=== PATIENT | male | born 1930 | race Caucasian/White ===

== ENCOUNTER 2018-01-02 10:27 | Inpatient (IN) | payer MEDICARE, BC ==
[~2018-01-02] VITALS: Ht 182.9 cm; Wt 99.3 kg
[2018-01-02 11:36] LABS: HEMATOCRIT 31.3 % (42.0-52.0); HEMOGLOBIN 10.1 gm/dL (14.0-18.0); MCH 33.2 pg (26.0-34.0); MCHC 32.4 g/dL (28.0-37.0); MCV 102.5 fL (80.0-100.0); RBC 3.05 mil/uL (4.50-6.00); RDW-CV 17.3 % (10.5-14.5); WBC 38.5 thou/uL (4.0-11.0)
[2018-01-02 11:46] LABS: ALBUMIN 3.1 g/dL (3.4-5.0); CALCIUM 8.6 mg/dL (8.5-10.1); CREATININE 6.9 mg/dL (0.6-1.3); POTASSIUM 3.9 mmol/L (3.5-5.1); TOTAL BILIRUBIN 0.6 mg/dL (<0.1-1.0); TOTAL PROTEIN 6.3 g/dL (6.4-8.2)
[2018-01-02] MEDS ORDERED: FOLIC ACID1 MG PO (14:00)
[2018-01-02] MEDS ORDERED: CELEXA10 MG PO (14:02)
[2018-01-02] MEDS ORDERED: ERGOCALCIF50000 UNIT PO (14:05)
[2018-01-02] MEDS ORDERED: TRAVATAN Z2.5 ML OPHTHALMIC (14:07)
[2018-01-02] MEDS ORDERED: PROSCAR 5MG TABL5 MG PO (14:08)
[2018-01-02] MEDS ORDERED: PRESERVISION A1 EAC2 PO (14:12)
[2018-01-02] MEDS ORDERED: PROTONIX40 M1 PO (14:13)
[2018-01-02] MEDS ORDERED: MIRALAX17 GM PO (14:16)
[2018-01-02] MEDS ORDERED: ALLOPURINOL 10100 M1 PO (14:18)
[2018-01-02] MEDS ORDERED: LANTUS100 UNIT/M SUBQ (14:19)
[2018-01-02] MEDS ORDERED: HUMALOG KW100 UNIT/1 SUBQ (14:21)
[2018-01-02] MEDS ORDERED: IMBRUVICA140 MG PO (14:32)
[2018-01-02] MEDS ORDERED: RENVELA800 MG PO ×2 (14:35→14:38)
--- NOTE | 2018-01-02 15:06 | EKG ---
[place] [address] ELECTROCARDIOGRAM REPORT Name: [facility] Room: [place] [address] ADM IN M.R.#: [id number] Admission: 01/02/18 Attend Phys: Georgiana Medeiros Discharge: Date of : [birth year] Report #: [id number] THIS REPORT FOR: //name// [facility] Test Date: 2018-01-02 Test Time: 13:01:52 Pat Name: MULU [facility] Department: Room: [place] [address] Gender: M Bench Lathe Operator: : 1930 Requested By: Holly Temple Order Number: [id number] Danial MD: Adrian Coles Measurements Intervals [place] Rate: 64 P: 13 IA: 161 QRS: -12 QRSD: 100 T: 14 QT: 632 QTc: 653 Interpretive Statements Sinus rhythm Borderline T abnormalities, anterior leads Prolonged QT interval No previous ECG available for comparison Electronically Signed On 01-02-2018 15:06:10 CDT by Adrian Coles [email or web address] <ELECTRONICALLY SIGNED> By: Adrian Coles MD, [facility] 01/02/18 1506 1301 130 Adrian Coles MD, FAC /EPI
--- NOTE | 2018-01-02 18:12 | NUR ---
VSS, ASSUMED CARE OF PT FROM WOUND CLINIC, PT IS UP[ WITH STAND BY AND CANE, PT IS ON RA AND DENIES ANY PAIN,PT DENIES ANY PAIN AND IS TRACING SR ON THE MONITOR, PT IS A&O4 AND HAS A WOUND ON LIZBET FROM OPEN AV GRAFT, PT IS IN SURGEY FROM GRAFT REPAIR, WILL FOLLOW WITH PLAN OF CARE.
[2018-01-02 19:50] VITALS: BP 90/39
[2018-01-03] VITALS: BP 109/59
[2018-01-03 04:00] VITALS: BP 101/59
--- NOTE | 2018-01-03 04:20 | NUR ---
END SHIFT: PT RESTED WELL. PAIN IN LEFT UPPER EXT WHERE GRAFT WAS PERFORMED, RELIEVED BY PAIN PILL. NSR NOTED ON MONITOR. 1L NC. LEFT UPPER ARM WRAPPED WITH LAURA HETAL, CDI. PLANS FOR DIALYSIS THIS AM. SAFETY PRECAUTIONS IN PLACE. CALL LIGHT IN REACH. WILL CONT TO MONITOR.
[2018-01-03 04:50] LABS: HEMATOCRIT 28.4 % (42.0-52.0); HEMOGLOBIN 9.1 gm/dL (14.0-18.0); MCV 103.3 fL (80.0-100.0); MPV 8.2 fl. (7.2-11.1); NUCLEATED RBCS 0 /100WBC; RBC 2.74 mil/uL (4.50-6.00); RDW-CV 17.6 % (10.5-14.5)
[2018-01-03 04:55] LABS: PLATELET COUNT* 45 thou/uL (150-400); WBC 41.4 thou/uL (4.0-11.0)
[2018-01-03 05:18] LABS: CALCIUM 8.4 mg/dL (8.5-10.1); POTASSIUM 3.8 mmol/L (3.5-5.1)
[2018-01-03 05:19] LABS: CREATININE 8.2 mg/dL (0.6-1.3)
[2018-01-03 07:45] LABS: ABSOLUTE LYMPHOCYTES 38.1 thou/uL (0.8-5.3); ABSOLUTE MONOCYTES 1.2 thou/uL (0.0-1.2); ABSOLUTE NEUTROPHILS 2.1 thou/uL (1.6-8.1); ATYPICAL LYMPHS 49 %; ATYPICAL MONONUCLEARS 3 %; PLATELET ESTIMATE DECREASED
[2018-01-03 07:47] LABS: HYPOCHROMASIA 1+; POIKILOCYTOSIS Occasional; POLYCHROMASIA Occasional
[2018-01-03 08:40] VITALS: BP 90/43
--- NOTE | 2018-01-03 10:00 | NUR ---
MET WITH PT, /PAMELA AND FAMILY IN ROOM TO DISCUSS HOME SITUATION/DC PLANNING. PT LIVES WITH . HE IS INDEPENDENT WITH ADLS, USES CANE OR WALKER AND WEARS O2 AT NIGHT THRU [place]. HE HSAN'T HAD HH AND STATES HE 'DOESN'T NEED IT.' PT GOES TO [facility] AND PLANS TO RETURN HOME AT [place] HOPES TO GO HOME TODAY. PT DENIES ANY DC NEEDS. WILL FOLLOW
--- NOTE | 2018-01-03 10:30 | NUR ---
ASSUMED CARE OF PT THIS AM AROUND 714- MED SURG STATUS IN PLACE AND MAINTAINED- UPON ASSESSMENT PT NOTED TO BE RESTING IN BED, AT SIDE- PT A&O X4, LITTLE TRAVERSE- CONTINENT OF BOWEL AND BLADDER, WITH NOTED ANURIA R/T DIALYSIS- ASSIST X1 WITH TRANSFERS WITH CANE- LCTA, RESP EVEN AND UN-LABORED- VSS, O2 SAT 97% ON 3.5L VIA NC THIS AM- RIGHT CHEST PORT ACCESSED, SL C/D/I WITH NO S/S INFECTION-IV ABT GIVEN THIS AM WITH NO ADVERSE REACTIONS TO NOTE- LEFT UE SURGICAL REVISION NOTED, DRESSING WITH LAURA WRAP IN PLACE INDICATED- LEFT TEMP DIALYSIS PORT NOTED TO LEFT NECK IN PLACE, DRESSING C/D/I WITH NO S/S INFECTION NOTED- GOOD PO INTAKE NOTED THIS AM WITH BREAKFAST- BS MONITORED PRESCIBED- PRN OXY GIVEN PER PT REQUEST R/T PAIN, PT REPORTS MEDICATION TO BE EFFECTIVE- CALL LIGHT AND PERSONLA BELONGINGS WITH IN REACH- HOURLY ROUNDS IN PLACE R/T SAFETY/NEEDS- ALL NEEDS MET AT THIS TIME-[facility]
[2018-01-03 15:55] VITALS: BP 90/43
[2018-01-03] MEDS ORDERED: PERCOCET PO (17:36)
[2018-01-03] MEDS ORDERED: VANCO1GM IV (17:39)
--- NOTE | 2018-01-03 18:23 | OP ---
[facility] [address] [place] [address] OPERATIVE REPORT Name: [facility] Room: [address] M.R.#: [id number] Admission: 01/02/18 Attend Phys: Georgiana Medeiros Discharge: Date of : [birth year] Report #: [id number] THIS REPORT FOR: //name// CC: Kulwant Gallo DATE OF SERVICE: 01/02/2018 PREOPERATIVE DIAGNOSIS: Exposed left upper extremity arteriovenous graft. POSTOPERATIVE DIAGNOSIS: Exposed left upper extremity arteriovenous graft. SURGEON: Kulwant Osorio DO. WASTE MANAGEMENT ENGINEER: Holly Temple PA-C and CANDY Mon. ANESTHESIA: General endotracheal anesthesia. PROCEDURE: 1. Revision of left upper extremity AV graft. 2. Excision of previous and exposed and infected AV graft. 3. Ultrasound-guided access, left internal jugular vein. 4. Tunneled dialysis catheter placement, left internal jugular vein with Bard RetrO catheter. 5. Fistulogram, left upper extremity with angioplasty of cephalic vein with Bard 6 x 40 mm angioplasty balloon. ESTIMATED BLOOD LOSS: 100 mL. SPECIMEN: Cultures x 3. I took a graft culture proximally near the elbow, distally near the shoulder and also separately a culture of the exposed graft. COMPLICATIONS: None. CONDITION: Stable. DISPOSITION: Floor. INDICATIONS FOR THE PROCEDURE AND CONSENT: The patient is an 87-year-old male who presented with exposed left upper extremity AV graft to the [facility]. This was a progression and a deterioration from his last visit and there was significant concern for wall thickening of the graft and anticipated bleeding. Recommendation for revision was made. Risks and benefits were discussed, infection, bleeding, need for additional procedures, need for tunneled dialysis catheter placement, and need for new access if graft salvage [address] [address] OPERATIVE REPORT Name: [facility] Room: [address] Vikas Elliott#: [id number] Admission: 01/02/18 Attend Phys: Georgiana Medeiros Discharge: Date of : [birth year] Report #: [id number] is not possible. The patient wished to proceed after risks and benefits were discussed and the patient was consented and scheduled the same day. PROCEDURE IN DETAIL: After timeout was performed, the patient was placed in supine position with circumferential sterile prep and drape of left upper extremity as well as anterior neck and chest wall. The anterior neck and chest were excluded from the procedure and the AV graft was assessed first. The AV graft was accessed proximally with a micropuncture needle and 5-Slovak micropuncture sheath. An outflow fistulogram was performed. The graft felt somewhat pulsatile. This demonstrated a severe stenosis beyond the previously placed AV graft within the cephalic vein. The central venous system appeared widely patent without flow limitation or stenosis, although the cephalic axillary vein junction was small and did not really appear stenosed. This appeared to be his normal anatomy. I therefore advanced a Glidewire beyond the stenosis and angioplasty with a 6 x 40 Bard angioplasty balloon. Repeat angiography demonstrated excellent radiographic result without significant flow or limitation or recoil. This area was marked on the skin and was noted to be high in the axilla and I did not feel it was appropriate to bypass beyond it with my revision. I then made transverse incisions well beyond the area of infection and proximally where I had accessed the graft with the sheath. The dissection was carried down with Bovie electrocautery and Metzenbaum scissors. Proximal and distal controls were obtained at each area. After administering 5000 units of heparin I then clamped the graft proximally and divided it. I then excised a portion of the graft closest to the infection and sent it as culture elbow graft. I then did a similar exposure, clamping, transection and removal of area near the shoulder. I then tunneled between the two incisions and tunneled a new 7 mm Acuseal graft between the two. I then performed an end-to-end anastomosis at both graft sites with 5-0 Prolene suture. I then irrigated and made sure of hemostasis and closed both in layers using 3-0 Vicryl and 4-0 Monocryl suture and Dermabond dressing was applied. I then removed the Tegaderm that I had placed on the area of the wound and addressed the infected area. I then made an incision overlying the graft and dissected out the graft and excised the central portion and sent it as a culture. I then removed as much graft back to well incorporated tissue as possible and discarded it. We then irrigated the wound and packed it with Aquacel Ag. The arm was then covered and attention was turned to the tunneled dialysis catheter. I then performed an ultrasound, identified the jugular vein, which was somewhat difficult. There appeared to be significant varicosities within the neck and the internal jugular vein was difficult to localize. I was able to access it, however, on first stick and passed a wire into the central venous system. The central venous system was congested by a previous right-sided Port-A-Cath and pacemaker. I was able to advance the Glidewire as introducer sheath over the wire and advanced a second wire, advanced the dual lumen catheter over both [address] [address] OPERATIVE REPORT Name: M[facility] Room: 233-1 [facility] NishiAleshia.#: [id number] Admission: 01/02/18 Attend Phys: Georgiana Medeiros Discharge: Date of : [birth year] Report #: [id number] wires after dilation into the SVC and the tunnel on the chest wall aspirated and flushed well and ports were applied and heparinized saline advanced through the catheters too. The access site was then closed with a 4-0 Monocryl suture and Dermabond dressing was applied and sterile dressing was applied. LAURA compression wrap was applied to left upper extremity to assist with swelling. The patient tolerated both the procedures well. Lap, needle, and instrument counts were correct. <ELECTRONICALLY SIGNED> By: Kulwant Osorio DO 01/03/18 1823 1859 1918Kulwant Osorio DO /nt
--- NOTE | 2018-01-03 19:01 | NUR ---
PT CURRENLTY RESTING IN BED, SPOUSE AT SIDE VISTING- IV ACCESS TO RIGHT CHEST IN PLACE AND CONTINUED INDICATED- DIALYSIS COMPLETED THIS SHIFT SCHEDULED, UNABLE TO PULL FLUIDS OFF R/T HYPOTENTION DURING DIALYSIS- ORDERS RECIEVED PER FOR ALBUMIN X1 AND MIDODRINE 10MG X1 AND GIVEN PER DIALYSIS NURSE WITH NO SUCESS- BLOOD CLEANED DURRING DIALYSIS- ID HERE TO ASSESS PT DURING DIALYSIS WITH ORDERS NOTED FOR VANC DURING DIALYIS- UPON RETURNING TO ROOM AND GETTING READY TO GO OVER D/S ORDERS AND DEMMONSTRATE DRESSING CHANGE TO SPOUSE- SPOUSE NOTED TO BCOME ANXIOUS AND LOUD, APPREHENSIVE ABOUT TAKING PT HOME AND CARING FOR HIM, FELLING THAT SHE WAS NOT GETTING ALL INFORMATION NEEDED- NOTIFIED AND HAS SPOKE WITH SPOUSE- PLANS ARE FOR PT TO STAY ANOTHER NIGHT WITH CM TO SET UP HH FOR D/C, AND FOR FURTHER EDUCATION PRIOR TO D/C- PT AND SPOUSE CURRENLTY RESTING IN ROOM-OKAY AND CALM WITH PLANS AT THIS TIME-ALL NEEDS MET AT THIS TIME-WCTM
[2018-01-03 20:00] VITALS: BP 102/33
[2018-01-04] VITALS: BP 103/46
[2018-01-04 04:00] VITALS: BP 119/66
--- NOTE | 2018-01-04 06:24 | NUR ---
ASSUMED CARE OF PATIENT AT 1900 THE PATIENT REMAINS SR ON THE MONITOR O2 SAT MAINTAINED ON 2L O2 NC DURING NIGHT REMAINED BEDREST THE ROUTINE ET PRN REGIMEN CONTINUES TO BE EFFECTIVE FOR SX MANAGEMENT PAIN RECEIVED PRN OPIOD X 2 EFFECTIVE PATIENT PROGRESSING TOWARDS GOALS OF DISCHARGE SAFETY INTERVENTIONS CONTINUE BED LOWERED WHEELS LOCKED CALL LIGHT IN REACH SIDE RAILS UP REPORT TO BE GIVEN TO IRAM ACOSTA
--- NOTE | 2018-01-04 06:43 | CON ---
[address] [address] CONSULTATION Name: [facility] Room: [address] M.RRina#: [id number] Admission: 01/02/18 Attend Phys: Georgiana Medeiros Discharge: Date of : [birth year] Report #: [id number] THIS REPORT FOR: //name// CC: Kulwant Gallo DATE OF SERVICE: 01/03/2018 INFECTIOUS DISEASE CONSULTATION ATTENDING PHYSICIAN: Donovan Gallo DO REASON FOR EVALUATION: Infected arteriovenous graft utilized for dialysis proximal left upper extremity. HISTORY OF PRESENT ILLNESS: Chart reviewed, patient examined. This is an 87-year-old gentleman with end-stage renal disease. Also, has chronic lymphocytic leukemia who was evaluated as an outpatient in the wound care center, had exposed AV graft associated with left proximal upper extremity. He was subsequently admitted and underwent operative excision, redirection of the graft, cultures in progress. He was given a dose of vancomycin as well as levofloxacin. Denies pulmonary or gastrointestinal related complaints. ALLERGIES: PENICILLIN, SULFA, METFORMIN. CURRENT MEDICATIONS: Include levofloxacin, allopurinol, finasteride, folic acid, insulin, ipratropium, albuterol inhaler. PAST MEDICAL HISTORY: As noted above. In addition to the above, thrombocytopenia. SOCIAL HISTORY: Former smoker. No ethanol. FAMILY HISTORY: Noncontributory. REVIEW OF SYSTEMS: As above. PHYSICAL EXAMINATION: GENERAL: He is alert, cooperative, in mild distress, appears somewhat chronically ill, undernourished. He is seen in dialysis. VITAL SIGNS: Temperature 97.3, pulse 67, respirations 20, blood pressure 90/43. SKIN: Warm. Fine rashes. HEENT: Unremarkable. NECK: Supple. LUNGS: Clear to auscultation. [address] [address] CONSULTATION Name: [facility] Room: [address] Earl#: [id number] Admission: 01/02/18 Attend Phys: Georgiana Medeiros Discharge: Date of : [birth year] Report #: [id number] HEART: Regular. I do not appreciate any murmur. ABDOMEN: Soft. EXTREMITIES: Proximal left upper extremity has a wound at the site of recent graft excision. He has got moderate degree of inflammation noted. There is no purulence at this point. He is moderately tender. GENITOURINARY: Deferred. RECTAL: Deferred. LABORATORY DATA: Blood cultures sterile thus far. Electrolytes: Sodium 141, potassium 3.8, chloride 99, bicarbonate is 34, anion gap of 8, BUN and creatinine 47 and 8.2, estimated GFR of 6. CBC: White count of 41.4, H and H 9.1 and 28.4, platelets of 45. There is 49% atypical lymphocytes with a total lymphocyte count of 38,000. Lactic acid 1.7. Chest x-ray, left basilar scarring. ____. LFTs unremarkable. Albumin of 3.1. Total protein of 6.3. 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 We will continue parenteral therapy with vancomycin, pending results of culture with dialysis thrice weekly. We will see him in followup in 2 weeks. We will again follow the culture results and change as needed. <ELECTRONICALLY SIGNED> By: Bryson Lopez MD 01/04/18 0643 1623 [id number] Lopez MD /nt
[2018-01-04 07:58] VITALS: BP 106/37
--- NOTE | 2018-01-04 10:03 | NUR ---
ASSUMED CARE OF PT THIS AM AROUND 07- M/S STATUS MAINTAINED- UPON ASSESSMENT PT NOTED TO BE RESTING IN BED, DAUGHTER AT BEDSIDE- PT A&O X4- CONTINENT OF BOWEL, ANURIC- ASSIST X1 WITH TRANSFERS- LCTA, RESP EVEN AND UN-LABORED- VSS, O2 SAT 91% ON RA- ABDOMEN SOFT/ROUND/NON-TENDER, BS X4 QUADS- LAST BM REPORTED X3 DAYS AGO- IV ASSESS NOTED TO RIGHT CHEST INTACT AND SL- LEFT SUBCLAV TEMP DIALYSIS PORT INTAC, DRESSING C/D/I- DRESSING IN PLACE TO LUE INDICATED- PT UP TO BED SIDE CHAIR THIS AM WITH BREAKFAST- GOOD PO INTAKE NOTED- BS MONITORED ORDERED, SSI PRESCIBED- PT DENIES ANY C/O PAIN/DISCOMFORT AT THIS TIME- CALL LIGHT AND PERSONAL BELONGINGS WITH IN REACH- HOURLY ROUNDS IN PLACE R/T SAFETY/NEEDS- ALL NEEDS MET AT THIS TIME-WCTM
--- NOTE | 2018-01-04 10:50 | NUR ---
MET WITH PT, DTR/IGOR WITH DR LAZAR. ANSWERED QUESTIONS. IGOR VOICED THAT THEY ARE 'EMOTIONAL' AND WAS UPSET WITH CM. SERVICE RECOVERY DONE AND WAS ABLE TO DISCUSS DC PLAN. IGOR ASKED ABOUT GETTING A W/C, FOR NURSE AND PT AND CONFIRMED INFO RE; DIALYSIS AND IV ANTIBX. DR LAZAR ASKED THAT PT'S DPOA/SON MULU BE CONTACTED TO DISCUSS WELL. CALL TO MULU AT [phone]. UPDATED ON PLAN AND ANSWERED QUESTIONS. CALL TO [facility] RE: W/C. FAXED ORDERS AND INFO TO [facility]. ASKED THAT IT BE DELIVERED TO HOSPITAL. MULU ASKED ABOUT DC TIME, INFORMED WOULD BE THIS AFTERNOON. ASSURED IGOR THAT THERAPY WOULD SEE PT SOON POSSIBLE AND THAT KARLA LACKEY WOULD GO OVER DC INSTRUCTIONS WITH PHONE NUMBERS AND F/U INFO. ASKED KARLA LACKEY TO GET ORDERS FOR WOUND CARE TO ARM. WILL FINALIZE ORDERS ONCE WC ORDERS AND W/C INFO AVAILABLE. MULU ASKED THAT HH BE [facility] AT HOME, CALLED AND FAXED ORDERS TO [facility], AWAIT CALL BACK
--- NOTE | 2018-01-04 12:48 | NUR ---
O.T. ORDERS RECIEVED AND CHART REVIEWED. PT. AND FAMILY DECLINED O.T. EVAL STATING PT. CAN TAKE CARE OF HIMSELF, HAS SOMEONE TO HELP HIM IF NEEDED, AND IS DISCHARGING TO HOME SOON. THUS, O.T. SERVICES ARE NOT INDICATED AT THIS TIME.
--- NOTE | 2018-01-04 12:49 | NUR ---
ORDERS RECIEVED FOR OKAY TO D/C TO HOME THIS SHIFT PER - CM HERE TO SPEAK WITH DAUGHTER WELL PRIOR TO D/C WITH HH ORDERS NOTED AND SET UP PRIOR TO D/C- SCRIPT OBTAINED FOR W/C AND SET UP PRIOR TO D/C R/T WEAKNESS AND IS GOING TO BE DELIVERED TO HOME POST D/C- ASHLEY WHOM IS REPORTED TO BE RN HERE TO OBSERVE THIS NURSE DO DRESSING CHANGE PRIOR TO D/C- DRESSING CHANGED PER ORDERED, MINIMAL DRAINE NOTED AT TIME OF DRESSING CHANGE, AREA WITH OUT S/S INFECTION- PT/OT HERE TO ASSESS PRIOR TO D/C INDICATED- PT REFUSED OT SERVICES-RT HERE TO DO REST/EXERCISE EVAL PRIOR TO D/C WITH NO NEED FOR O2 DURRING DAY REPORTED- D/C TEACHING/EDUCATION GIVEN TO PT AND DAUGHTER AT TIME OF D/C, WITH ALL QUESTIONS AND CONCERNS ADDRESSED PRIOR TO D/C- WRITTEN EDUCATION ALONG WITH SCRIPTS PROVIDED TO PT AND DAUGHTER AT TIME OF D/C- BELONGINGS PACKED AND ACCOUNTED FOR PER PT AND DAUGHTER PRIOR TO D/C- PT MEHUL IN ROOM EATING LUNCH- WILL CALL FOR ESCORT FOR D/C WHEN DONE EATING- ALL NEEDS MET AT THIS TIME-WCTM
--- NOTE | 2018-01-13 10:45 | CON ---
[address] [address] CONSULTATION Name: MULU PHOENIX Room: [address] IN .R.#: [id number] Admission: 01/02/18 Attend Phys: Georgiana Medeiros Discharge: 01/04/18 Date of : [birth year] Report #: [id number] THIS REPORT FOR: //name// CC: Kulwant Gallo DATE OF SERVICE: 01/03/2018 REQUESTING PHYSICIAN: Donovan Gallo D.O. REASON FOR CONSULTATION: Assist in providing dialysis. HISTORY OF PRESENT ILLNESS: The patient is a very pleasant 87-year-old gentleman, very well known to me. He is being dialyzed at [facility] on Sunday, , Sunday schedule. He was admitted yesterday because his AV graft got infected and was exposed. He was taken to the OR by Dr. Osorio yesterday and Dr. Osorio performed revision of the left upper extremity AV graft with excision of previously exposed infected AV graft and placement of a tunneled dialysis catheter in the left internal jugular vein. He also performed angiogram and angioplasty of the cephalic vein with the Bard balloon. SOCIAL HISTORY: No tobacco or alcohol abuse. FAMILY HISTORY: Noncontributory. PAST MEDICAL HISTORY: Significant for: 1. End-stage renal disease. 2. History of chronic lymphocytic leukemia, followed by Dr. Waters. 3. History of thrombocytopenia. PHYSICAL EXAMINATION: GENERAL: Awake, alert, oriented. VITAL SIGNS: Blood pressure 90/43, heart rate 67, afebrile. EYES: Pupils are round. NECK: Supple. LUNGS: Decreased air movement. CARDIOVASCULAR: Regular rate. EXTREMITIES: He got ____ tunneled internal jugular catheter in place and his left upper arm graft is wrapped. ABDOMEN: Soft. ASSESSMENT: The patient is an 87-year-old gentleman with exposed and infected graft status post revision of that and excision of [place] [address] CONSULTATION Name: MULU [facility]EN[facility] Room: [address]#: [id number] Admission: 01/02/18 Attend Phys: Georgiana Medeiros Discharge: 01/04/18 Date of : [birth year] Report #: [id number] graft and placement of tunneled dialysis catheter. The patient will be dialyzed today and after that he can go home from my standpoint. <ELECTRONICALLY SIGNED> By: Ry Harris MD 01/13/18 1045 1148 [id number] Harris MD /nt
--- NOTE | 2018-01-26 07:25 | CON ---
[address] [address] CONSULTATION Name: MULU PHOENIX Room: [facility] M.R.#: [id number] Admission: 01/02/18 Attend Phys: Georgiana Medeiros Discharge: 01/04/18 Date of : [birth year] Report #: [id number] THIS REPORT FOR: //name// CC: Kulwant Gallo DATE OF SERVICE: 01/03/2018 The patient is being seen in consultation at the request of the hospitalist for evaluation of thrombocytopenia. Today, the patient is a fair medical accounts receivable specialist. The patient has a diagnosis of chronic lymphocytic leukemia, with the diagnosis having been made in 2009. 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 His spleen has always been large. 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 In 05/2015, obinutuzumab was started and although chlorambucil was intended to be given alongside that medication, the patient already had significant thrombocytopenia and chlorambucil was withheld. The patient finished treatment with obinutuzumab in 09/2015. Some doses of chlorambucil were given, but that medication was eventually discontinued. Because of evidence of progression with the rising white blood cell count, ibrutinib was eventually started. 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 Because he experienced more than one episode of pneumonia, he started receiving monthly cycles of IVIG in 12/2016. I had seen the patient most recently in the clinic on 12/24/2017. He had been off of Imbruvica because of what appeared to be an infected hemodialysis graft. When I saw the patient most recently in the clinic on 12/25/2017, I told him to resume Imbruvica the next day if the graft site in his left upper extremity appeared not to be infected by Dr. Hill (Vascular Surgery). The patient recently was seen by Vascular Surgery because of worsening situation in his left upper extremity. He was admitted urgently to [facility] and underwent debridement and coverage of the graft. According to the dialysis nurse with whom I spoke, the graft was at risk for rupture. The patient reported that he has not had any recent fevers, rigors, drenching sweats or other infections. He has hemodialysis usually on Tuesdays, and Saturdays, and during this hospital stay at [facility], he has been seen by Dr. Harris. For the past medical history, social history and family history, please see the [place] [address] CONSULTATION Name: MULU PHOENIX Room: [facility] M.R.#: [id number] Admission: 01/02/18 Attend Phys: Georgiana Medeiros Discharge: 01/04/18 Date of : [birth year] Report #: [id number] PHYSICAL EXAMINATION: GENERAL: Reveals a pleasant, alert gentleman, in no acute distress. He is undergoing dialysis on the 3rd floor in [facility] and the dialysis nurses present. He was alert and answering questions appropriately. He had no resting tachypnea. HEENT: Pupils are equal, the sclerae were nonicteric. Mucous membranes of nose and mouth are normal. LYMPHATICS: He had no lymphadenopathy in the cervical, clavicular or axillary regions. EXTREMITIES: Dressing was covering his left upper extremity arteriovenous graft site and this was not disturbed. PULMONARY: Lung garcia were clear anteriorly without rales or wheezes. CARDIOVASCULAR: Anteriorly, his heart reveals normal rate and rhythm without a murmur. GASTROINTESTINAL: His abdomen reveals no unusual distention. He had an easily palpable spleen descended below the costal margin laterally to a position approximately the level of the umbilicus. The most medial edge of the spleen 15 cm of the midline alf between the umbilicus and the xiphoid process, although it was somewhat difficult to tell. He had no obvious ascites. No guarding. No hepatomegaly. MEDICAL DATA: 1. From 01/02/2018, I reviewed the history and physical by Dr. Viramontes. 2. From 01/02/2018, I reviewed the operative report by Dr. Osorio. He performed a revision of the left upper extremity AV graft, excision of previous exposed and infected AV graft and placement of a tunneled dialysis catheter left internal jugular vein with Bard RetrO catheter. He also performed fistulogram left upper extremity with angioplasty of the cephalic vein with angioplasty balloon. 3. From 01/02/2018, laboratory studies showed white blood cell count of 38,500, hemoglobin 10.1, hematocrit 31.3%, MCV 102.5, RDW 17.3 and platelet count of 51,000. 4. From [facility], on 12/24/2017, most recent CBC revealed a white blood cell count of 43,100, platelet count 34,000, hemoglobin 9.3, hematocrit 29.8, MCV 107.2, RDW 16.8. Overall, the patient is doing quite well with regard to his CLL. He at least is stable. Once the graft heals, I am inclined to restart Imbruvica. The patient already has an appointment to see me. I told him that I would be able to review the information and recommend Imbruvica dosing again once he comes back to the clinic. <ELECTRONICALLY SIGNED> By: Mulu Waters MD 01/26/18 [id number] Waters MD /nt
== END 2018-01-04 13:10 | disposition home health service (06) | DRG 252 ==
LOC: M.PRE 10:27 → M.2W 10:34
PROVIDERS: Internal Medicine; Physician Assistant Surgical; ADMIT Internal Medicine
DX: T82.7XXA Infection and inflammatory reaction due to other cardiac and vascular devices, implants and grafts, initial encounter (principal); J18.9 Pneumonia, unspecified organism; N18.6 End stage renal disease; T82.318A Breakdown (mechanical) of other vascular grafts, initial encounter; Z85.6 Personal history of leukemia; D69.6 Thrombocytopenia, unspecified; Y83.8 Other surgical procedures as the cause of abnormal reaction of the patient, or of later complication, without mention of misadventure at the time of the procedure; Y92.89 Other specified places as the place of occurrence of the external cause; Z79.4 Long term (current) use of insulin; Z79.899 Other long term (current) drug therapy; Z87.891 Personal history of nicotine dependence; Z88.0 Allergy status to penicillin; Z88.2 Allergy status to sulfonamides; Z88.8 Allergy status to other drugs, medicaments and biological substances

== ENCOUNTER → 2018-01-02 | Outpatient (CLI) | payer MEDICARE, BC ==
[~2018-01-02] MED LIST: ALLOPURINOL 10100 M1 PO; CELEXA10 MG PO; ERGOCALCIF50000 UNIT PO; FOLIC ACID1 MG PO; HUMALOG KW100 UNIT/1 SUBQ; IMBRUVICA140 MG PO; LANTUS100 UNIT/M SUBQ; MIRALAX17 GM PO; PERCOCET PO; PRESERVISION A1 EAC2 PO; PROSCAR 5MG TABL5 MG PO; PROTONIX40 M1 PO; RENVELA800 MG PO; TRAVATAN Z2.5 ML OPHTHALMIC; VANCO1GM IV
== END ==
LOC: M.WC 08:26
DX: S41.102A Unspecified open wound of left upper arm, initial encounter (principal); L02.414 Cutaneous abscess of left upper limb; E11.22 Type 2 diabetes mellitus with diabetic chronic kidney disease; I12.0 Hypertensive chronic kidney disease with stage 5 chronic kidney disease or end stage renal disease; N18.6 End stage renal disease; Z87.891 Personal history of nicotine dependence; Z95.0 Presence of cardiac pacemaker; Z79.4 Long term (current) use of insulin; X58.XXXA Exposure to other specified factors, initial encounter; Y93.89 Activity, other specified; Y92.89 Other specified places as the place of occurrence of the external cause; Y99.8 Other external cause status

== ENCOUNTER → 2018-01-07 | Outpatient (CLI) | payer MEDICARE, BC | LOC: M.WC 00:52 | DX: L02.414 Cutaneous abscess of left upper limb (principal); E11.22 Type 2 diabetes mellitus with diabetic chronic kidney disease; I12.0 Hypertensive chronic kidney disease with stage 5 chronic kidney disease or end stage renal disease; N18.6 End stage renal disease; Z87.891 Personal history of nicotine dependence; Z96.653 Presence of artificial knee joint, bilateral; Z95.0 Presence of cardiac pacemaker ==